=== PATIENT | female | born 1955 | race Caucasian/White ===

== ENCOUNTER 2021-03-29 06:41 | Emergency (ER) | payer MEDICARE, OTHER ==
[~2021-03-29] VITALS: Ht 167 cm; Wt 99.7 kg
--- OUTSIDE RECORDS SUMMARY | 2021-03-29 06:49 | XMS REPORT | Clinical Summary ---
Author Author [facility] Organization [facility] Address Unknown Phone Unavailable Care Team Providers Care Keying Machine Operator Name Role Phone Milton Carreon MD PCP Allergies Comments Active Allergy Reactions Severity Noted Date Doxycycline Nausea And Medium 09/01/2017 Vomiting Droperidol Anxiety Low 11/12/2015 Metronidazole Nausea And Medium 09/04/2017 Vomiting Medications End Date Status Medication Sig Dispensed Refills Start Date Active diazePAM (VALIUM) 5 MG Take 1 tablet 15 tablet 0 1 tabletIndications: Major (5 mg total) 8 depressive disorder with by mouth single episode, in every 6 (six) partial remission (HCC) hours as needed for anxiety. Active chlorthalidone (HYGROTON) Take 1 tablet 90 tablet 3 25 MG tablet (25 mg total) 1 by mouth daily. Active losartan (COZAAR) 25 MG Take 1 tablet 90 tablet 3 tablet (25 mg total) 1 by mouth daily. Active iron polysac-iron heme Take 1 tablet 0 polypep 28 mg Tab by mouth daily. Active therapeutic multivitamin Take 1 tablet 0 (THERAGRAN) tablet by mouth 2 (two) times a day. Active niacin 500 MG tablet Take 500 mg 0 by mouth nightly. Active semaglutide 0.25 mg or Inject 0.25 0 0.5 mg(2 mg/1.5 mL) PnIj mg under the skin weekly. Active mecobalamin, vitamin B12, Chew 1 tablet 0 1,000 mcg Chew daily. Active methylPREDNISolone Follow 21 tablet 0 12/02/ 02 (MEDROL DOSEPACK) 4 mg package 1 tablet directions Active desvenlafaxine succinate TAKE 1 TABLET 90 tablet 3 (PRISTIQ) 100 MG 24 hr BY MOUTH 1 tablet DAILY (TO REPLACE PRISTIQ 50 MG) Active Problems Problem Noted Date Non-smoker 06/26/2020 History of bariatric surgery 05/01/2019 LBBB (left bundle branch block) 04/26/2019 Major depressive disorder with single episode, in par tial remission 07/14/2017 Obesity (BMI 30.0-34.9) 07/18/2015 Varicose veins 10/31/2014 Elevated glucose 08/16/2014 Lump or mass in breast 04/18/2014 Postsurgical nonabsorption 09/29/2013 Overview: Formatting of this note might be differ ent from the original. IMO Update Chronic LBP 05/19/2013 Essential hypertension 10/27/2012 Overview: Formatting of this note might be differ ent from the original. ICD-10 conversion Osteoarthritis 10/27/2012 Overview: Formatting of this note might be differ ent from the original. ICD-10 conversion Resolved Problems Problem Noted Date Resolved Date Hypokalemia 08/16/2014 06/20/2016 Morbid obesity 10/09/2013 05/01/2019 Follow-up examination following surgery 09/29/2013 07/17/2015 Overview: Formatting of this note might be differ ent from the original. ICD-10 conversion Acute upper respiratory infection 04/04/201307/04 Overview: Formatting of this note might be differ ent from the original. ICD-10 conversion Myalgia and myositis 10/27/2012 05/01/2019 Overview: Formatting of this note might be differ ent from the original. ICD-10 conversion Encounters Care Team Description Date Type Specialty Zane Cornell DO Thyroid nodule 01/22/2021 Lab Lab Zane Cornell DO Thyroid nodule (Primary Dx) 01/22/2021 Transcribe Lab Orders from Last 3 Months Immunizations Name Administration Dates Next Due Influenza QIV (IM) 12/28/2019, 12/19/2018, 03/2018, 12/18/2016, 01/08/2016, 12/15/2013 Influenza QIV 12/28/2019 (adjuvanted) IM Influenza, Injectable, 12/19/2018 Quadrivalent, Contains Preservative Influenza, seasonal, 12/28/2019, 01/17/2015, 03/2014, 03/04/2013, injectable, preservatie 04/05/2011 free (IIV3). 15 = Influenza TIV Moderna Sars-cov-2 06/12/2020, 05/15/2020 Pneumococcal Conjugate 12/28/2019 13-Valent Pneumococcal 04/04/2008 Polysaccharide 23-Valent Varicella Zoster 12/04/2017, 08/17/2017 Recombinant, Adjuvanted (Shingrix) Zoster,live 07/17/2015 Family History Medical History Relation Name Comments Hypertension Brother 1 Essential Hypertens ion; Other Brother 2 Denial Of Any Signi ficant Medical History; Hypertension Father Essential Hypertens ion; Prostate cancer Father Prostate Cancer; Breast cancer Mother Breast Cancer; Lung cancer Mother Lung Cancer; Lung cancer Sister Lung Cancer; Relation Name Status Comments Brother 1 Brother 2 Father Mother Sister Social History Date Tobacco Use Types Packs/Day Years Used Never Smoker Smokeless Tobacco: Never Used Comments Alcohol Use Standard Drinks/Week Not Currently 0 (1 standard drink = 0.6 o z pure alcohol) Sex Assigned at Date Recorded Not on file Last Filed Vital Signs Reading Time Taken Comments Vital Sign 96/58 06/26/2020 1:14 PM CDT Blood Pressure 92 12/02/2020 2:19 PM CDT Pulse 36.7 C (98.1 F) 12/02/2020 2:19 PM CDT Temperature 18 12/02/2020 2:19 PM CDT Respiratory Rate 94% 12/02/2020 2:19 PM CDT Oxygen Saturation - - Inhaled Oxygen Concentration 107.5 kg (237 lb) 06/26/2020 1:14 PM CDT Weight 180.3 cm (5' 11") 06/26/2020 1:14 PM CDT Height 33.05 06/26/2020 1:14 PM CDT Body Mass Index Plan of Treatment Health Maintenance Due Date Last Done Comments Hepatitis C Screen 1955 Td/Tdap# 1955 Depression Monitoring 1955 PHQ-9 # Colorectal Screening via 10/27/2012 10/27/2002 Colonoscopy Medicare Annual Wellness 07/14/2018 07/14/2017, 01/08/2016 Advance Care Plan 2019 Conversation Needed # Osteoporosis Screening 2019 Fall Risk Assessment # 04/25/2020 04/25/2019, 07/14/2017, 07/14/2017 COVID-19 Vaccine (3 - 12/13/2020 06/12/2020, Booster for Moderna 05/15/2020 series) Pneumococcal Vaccine: 65+ 12/27/2020 12/28/2019, Years (2 of 2 - PPSV23) 04/04/2008 Influenza Vaccine (#1) 2021 12/28/2019, 12/28/2019, 12/28/2019, Additional history exists Mammogram Screening 03/27/2021 03/27/2020, 03/23/2019, 03/21/2018, Additional history exists Diabetes Mellitus 04/30/2021 04/30/2020, Ophthalmology Exam 04/26/2019, 12/16/2018, Additional history exists Zoster Vaccine# Completed 12/04/2017, 08/17/2017, 07/17/2015 Procedures Comments Procedure Name Priority Date/Time Associated Diag nosis THYROID STIMULATING Routine 01/22/2021 Thyroid no dule HORMONE 2:00 PM CDT TOTAL THYROXINE Routine 01/22/2021 Thyroid nodule 2:00 PM CDT from Last 3 Months Results * Total Thyroxine (01/22/2021 2:00 PM CDT) Total Thyroxine 6.9 5.5 - 11.0 ug/dL [facility] Specimen Blood Performing Organization Address City/State/[facility] Code P brenda Number [address] [address] LABORATORIES [facility] [address] [place] [id number] * Thyroid Stimulating Hormone (01/22/2021 2:00 PM CDT) Thyroid 0.99 0.47 - 4.68 uIU/mL [facility] Hormone Specimen Blood Performing Organization Address City/[facility]/ZIP Code P brenda Number [address] [address] LABORATORIES [facility] [address] [place] [phone] from Last 3 Months Insurance Type Payer Benefit Subscriber ID Effective Phone Address Plan / Dates Group MEDICARE REPLACEMENT PLAN AETNA [id number] 2017-P [address] MEDICARE resent [id number] [place] [phone] Jackelyn Alfaro Personal/F Self 1955 [id number] [address]Home) [place], [place] [address] Jackelyn Alfaro Personal/F Self 1955 [id number] [address] (Home) [place], [place] [address] Advance Directives For more information, please contact: [phone] 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
--- OUTSIDE RECORDS SUMMARY | 2021-03-29 06:49 | XMS REPORT | Clinical Summary ---
Author Author [facility] Organization [facility] Address Unknown Phone Unavailable Care Team Providers Care Manager Clinical Services Name Role Phone Hermelinda Mancini NP PCP Unavailable Source Comments [facility] (Labor and Delivery) documents do not appear in the [facility] Allergies Not on File Medications Please verify current medications with patient. Not on file Active Problems Not on file Social History Date Tobacco Use Types Packs/Day Years Used Never Assessed Sex Assigned at Date Recorded Not on file Last Filed Vital Signs Not on file Plan of Treatment Health Maintenance Due Date Last Done Comments CT Colonography 1955 Colonoscopy 1955 Colorectal Cancer 1955 Screening DNA-based stool test 1955 (Cologuard) DXA Scan 1955 DXA, Refined Population 1955 Mammogram 1955 Sigmoidoscopy 1955 gFOBT or FIT 1955 COVID-19 Vaccine (1) 1966 Pneumococcal Vaccine: 65+ 2019 Years (1 of 1 - PPSV23) Influenza Vaccine (#1) 2020 HPV Vaccine Aged Out No longer eligible based on patient's age to complete this topic Hepatitis A Vaccine Aged Out No longer eligible based on patient's age to complete this topic Hepatitis B Vaccine Aged Out No longer eligible based on patient's age to complete this topic Hib Vaccine Aged Out No longer eligible based on patient's age to complete this topic IPV Vaccine Aged Out No longer eligible based on patient's age to complete this topic Meningococcal Vaccine Aged Out No longer eligib le based on patient's age to (MCV4) complete this topic Rotavirus Vaccine Aged Out No longer eligible based on patient's age to complete this topic Results Not on filefrom Last 3 Months Insurance Type Payer Benefit Subscriber ID Effective Phone Address Plan / Dates Group Medicare MEDICARE ZZMEDICARE [id number] Effective [phone] for [id number] [place] [address] [facility] [id number] Effective [phone] [address] [place] [id number] [place] [address] Advance Directives Patient Claims Specialist Explanation Type Date Recorded Living Will CPR Directives Durable Medical POA Advanced Directives 06/23/2012 2:15 PM Care Teams Start Date End Date Manager Clinical Services Relationship Specialty 06/23/12 Hermelinda Mancini HARVEST SUPERVISOR PCP - General Internal Medicine
--- OUTSIDE RECORDS SUMMARY | 2021-03-29 06:49 | XMS REPORT | Clinical Summary ---
Author Author [facility] Organization [facility] Address Unknown Phone Unavailable Care Team Providers Care Silo Worker Name Role Phone Milton Ventura MD Unavailable Milton Carreon MD PCP Howard Simon MD Unavailable Source Comments Some departments are not documenting in the electronic medical record. If you d o not see the information that you expected, contact Release of Information in [facility] [employer] Information Management department at [phone] for further assistan ce in locating additional records.[facility] Allergies Comments Active Allergy Reactions Severity Noted Date Droperidol ANXIETY Low 11/12/2015 History of gastric bypass Nsaids (Non-Steroidal SEE COMMENTS Low 04/27/19 19 Anti-Inflammatory Drug) Medications End Date Status Medication Sig Dispensed Refills Start Date Active Desvenlafaxine (PRISTIQ) Take 100 mg 0 100 mg Tb24 by mouth daily. Active carvedilol (COREG) 12.5 Take 12.5 mg 0 mg tablet by mouth twice daily with meals. Take with food. Active furosemide (LASIX) 20 mg Take 20 mg by 0 tablet mouth every morning. Active vitamins, B complex tab Take 1 Tab by 0 mouth daily. Active vitamins, multi Take 1 Tab by 0 w/minerals 27-0.4 mg tab mouth daily. Active ferrous sulfate (FEOSOL, Take 325 mg 0 FEROSUL) 325 mg (65 mg by mouth iron) tablet daily. Take on an empty stomach at least 1 hour before or 2 hours after food. Active CANNABIDIOL (CBD) EXTRACT Take by 0 PO mouth twice daily. Active Problems Problem Noted Date History of weight loss 08/10/2018 Encounter for cosmetic surgery 02/11/2016 S/P cosmetic plastic surgery 02/10/2016 History of weight loss surgery 11/12/2015 Adiposity, localized 11/12/2015 Resolved Problems Problem Noted Date Resolved Date Postoperative seroma of subcutaneous tissue after non-derma tologic 05/19/2016 07/01/2016 procedure Surgical History Surgery Date Site/Laterality Comments BREAST SURGERY 2013 Bilateral reduction KIDNEY STONE SURGERY 2000-prese removal multiple nt GASTRIC BYPASS 2013 jayson-en-y HX CHOLECYSTECTOMY 1983 LAP BAND 2010,2012 removed 2012 GASTRIC BYPASS 2014 revision ADENOIDECTOMY 2006 uvula removed d/t s leep apnea KNEE ARTHROSCOPY 1996 Right HX COSMETIC SURGERY BRACHIOPLASTY 02/10/2016 Bilateral EXTENDED BRACHI OPLASTY performed by Milton Ventura MD at [facility] OR/PERIOP LIPECTOMY 08/10/2018 Abdomen/N/A HORTENSIANALDO AVINA PA NNICULECTOMY performed by Milton Ventura MD at [facility] OR/Pe riop Medical History Medical History Date Comments Depression Fibromyalgia DM (diabetes mellitus) (HCC) type 2, diet/weight co ntrolled Hypertension Family History Medical History Relation Name Comments Cancer Father prostate Heart Disease Father Hypertension Father Cancer Maternal blood Grandfather Cancer Maternal Breast Grandmother Cancer Mother Lung and Breast Diabetes Mother Stroke Mother Heart Disease Paternal Grandfather None Reported Paternal Grandmother Cancer Sister lung Relation Name Status Comments Father Maternal Grandfather Maternal Grandmother Mother Paternal Grandfather Paternal Grandmother Sister Social History Date Tobacco Use Types Packs/Day Years Used Never Smoker Smokeless Tobacco: Never Used Comments Alcohol Use Standard Drinks/Week monthly or less Yes 0 (1 standard drink = 0.6 o z pure alcohol) Alcohol Habits Answer Date Recorded How often do you have a drink containing alcohol? No t asked How many drinks containing alcohol do you have on No t asked a typical day when you are drinking? How often do you have six or more drinks on one Not asked occasion? Comment: monthly or less 04/27/2018 Sex Assigned at Date Recorded Not on file Last Filed Vital Signs Reading Time Taken Comments Vital Sign 140/73 02/08/2019 2:24 PM OPTICAL GOODS WORKER Blood Pressure 56 02/08/2019 2:24 PM OPTICAL GOODS WORKER Pulse 36.7 C (98.1 F) 02/08/2019 2:24 PM OPTICAL GOODS WORKER Temperature 16 02/08/2019 2:24 PM OPTICAL GOODS WORKER Respiratory Rate 96% 02/08/2019 2:24 PM OPTICAL GOODS WORKER Oxygen Saturation - - Inhaled Oxygen Concentration 100.9 kg (222 lb 6.4 oz) 02/08/2019 2:24 PM OPTICAL GOODS WORKER Weight 167.6 cm (5' 6") 02/08/2019 2:24 PM OPTICAL GOODS WORKER Height 35.9 02/08/2019 2:24 PM OPTICAL GOODS WORKER Body Mass Index Plan of Treatment Health Maintenance Due Date Last Done Comments MEDICARE ANNUAL WELLNESS 1955 VISIT DTAP/TDAP VACCINES (1 - 1972 Tdap) HEPATITIS C SCREENING 1972 PHYSICAL (COMPREHENSIVE) 1972 EXAM BREAST CANCER SCREENING 1994 COLORECTAL CANCER 2004 SCREENING OSTEOPOROSIS 2019 SCREENING/MONITORING PNEUMONIA (PPSV23) 2019 VACCINE ( - PPSV23) INFLUENZA VACCINE 11/03/2020 SHINGLES RECOMBINANT Completed 12/04/2017, VACCINE 08/17/2017 Results Not on filefrom Last 3 Months Insurance Type Payer Benefit Subscriber ID Effective Phone Address Plan / Dates Group Medicare AETNA MEDICARE AETNA [id number] 2017-P [phone] [address] MEDICARE resent [id number] [place] [address] Guarantor Name Account Relation to Date of Phone Billin g Address Type Patient Jackelyn Alfaro Personal/F Self 1955 [id number] [address] (Home) [place] [phone] (Work) Advance Directives 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 necessary based on Dx 02/11/2016 5:08 PM Full Code 02/10/2016 1:35 PM Provider has discussed Code Status No, discussion no t w/Patient or Family? necessary based on Dx Care Teams Start Date End Date Silo Worker Relationship Specialty 02/10/16 Milton Carreon MD PCP - General Internal [address] Medicine [address] [address] 10/04/15 Milton Ventura MD Plastic [address] [place] [address] 04/27/18 Howard Simon MD Vascular [address] [facility] Surgery Vascular Surgery [place], [place] [id number]
[2021-03-29] MEDS ORDERED: NITROGLYCERIN 0.4 MG SL TABS BTL 25'S SL PRN (07:15)
[2021-03-29] MEDS ORDERED: ASPIRIN 81 MG CHEW (CHILDREN'S ASA) PO ONE (07:15)
[2021-03-29 07:27] LABS: BASOPHILS # (AUTO) 0.1 10^3/uL (0.0-0.1); BASOPHILS % (AUTO) 1 % (0-10); EOSINOPHILS # (AUTO) 0.1 10^3/uL (0.0-0.3); EOSINOPHILS % (AUTO) 2 % (0-10); HEMATOCRIT 44 % (35-52); HEMOGLOBIN 14.5 g/dL (11.5-16.0); LYMPHOCYTES # (AUTO) 2.2 10^3/uL (1.0-4.0); LYMPHOCYTES % (AUTO) 35 % (12-44); MEAN CORPUSCULAR HEMOGLOBIN 32 pg (25-34); MEAN CORPUSCULAR HGB CONC 33 g/dL (32-36); MEAN CORPUSCULAR VOLUME 95 fL (80-99); MEAN PLATELET VOLUME 10.3 fL (9.0-12.2); MONOCYTES # (AUTO) 0.6 10^3/uL (0.0-1.0); MONOCYTES % (AUTO) 10 % (0-12); NEUTROPHILS # (AUTO) 3.2 10^3/uL (1.8-7.8); NEUTROPHILS % (AUTO) 52 % (42-75); PLATELET COUNT 232 10^3/uL (130-400); WHITE BLOOD COUNT 6.1 10^3/uL (4.3-11.0)
[2021-03-29 07:38] LABS: ALBUMIN 3.8 GM/DL (3.2-4.5); CHLORIDE 102 MMOL/L (98-107); POTASSIUM 3.1 MMOL/L (3.6-5.0); SODIUM 140 MMOL/L (135-145)
[2021-03-29 07:39] LABS: AMYLASE 47 U/L (25-125); CALCIUM 9.3 MG/DL (8.5-10.1)
[2021-03-29 07:40] LABS: GLUCOSE 128 MG/DL (70-105)
[2021-03-29 07:41] LABS: TOTAL PROTEIN 6.8 GM/DL (6.4-8.2)
[2021-03-29 07:42] LABS: CARBON DIOXIDE 26 MMOL/L (21-32)
[2021-03-29 07:43] LABS: BILIRUBIN,TOTAL 0.7 MG/DL (0.1-1.0)
[2021-03-29 07:44] LABS: ALKALINE PHOSPHATASE 78 U/L (40-136); CREATININE SERUM 0.79 MG/DL (0.60-1.30); GFR ESTIMATED 73
[2021-03-29 07:45] LABS: BUN/CREATININE RATIO 28
[2021-03-29 07:47] LABS: ALANINE AMINOTRANSFERASE 16 U/L (0-55)
[2021-03-29 07:48] LABS: CREATINE KINASE 113 U/L (29-168); LIPASE 23 U/L (8-78)
[2021-03-29 07:56] LABS: CREATINE KINASE MB 1.1 NG/ML (<6.6)
--- NOTE | 2021-03-29 08:02 | ED Chest Pain ---
General Chief Complaint: Chest Pain Stated Complaint: CP,DIZZY Source: patient History of Present Illness Date Seen by Provider: Mar 29, 2021 Time Seen by Provider: 07:05 Initial Comments PT ARRIVES VIA POV PT HERE VISITING FROM [place], [place]--JUST GOT TO [facility] LAST NIGHT STATES SHE HAS HAD SOME DIZZINESS SINCE LAST NIGHT WOKE UP AT 0100 WITH CHEST PAIN, HAS HAD 3 EPISODES OF PAIN SINCE THEN RATES PAIN 1/10 NOW PAIN IS IN CENT OF CHEST AND LEFT UPPER CHEST, OCCASIONALLY RADIATES UNDER LEFT BREAST + SWEATS NO SHORTNESS OF BREATH NO PALPITATIONS NO SYNCOPE NO NAUSEA/VOMITING NO SWELLING IN LEGS/ FEET OR PAIN IN CALVES NO HISTORY OF SIMILAR NO FEVER OR COUGH OR RECENT ILLNESS PT HAS HAD COVID-19 VACCINES X 2. Allergies and Home Medications Allergies Coded Allergies: droperidol (Verified Allergy, Unknown, 03/29/21) Patient Home Medication List Home Medication List Reviewed: Yes Review of Systems Review of Systems Constitutional: see HPI, chills, diaphoresis EENTM: No Symptoms Reported Respiratory: No Symptoms Reported Cardiovascular: See HPI, Chest Pain; Denies Edema, Denies Lightheadedness, Denies Palpitations, Denies Syncope Gastrointestinal: No Symptoms Reported; Denies Abdominal Pain, Denies Nausea, Denies Vomiting Genitourinary: No Symptoms Reported Musculoskeletal: no symptoms reported Skin: no symptoms reported Psychiatric/Neurological: No Symptoms Reported Endocrine: No Symptoms Reported Hematologic/Lymphatic: No Symptoms Reported Past Dhxjnvk-[id number]-Vnkzko Hx Patient Social History Tobacco Use?: No Substance use?: No Alcohol Use?: Yes Alcohol Frequency: Several times a month Past Medical History Surgery/Hospitalization HX: [facility] BARIATRIC SURGERY 9 YEARS AGO, FOLLOWED BY [facility] IN 2014 FOR [facility] MULTIPLE PLASTIC SURGERIES Surgeries: Yes Abdominal, Gallbladder Respiratory: No Cardiac: Yes (LBBB FROM EKG 10/2019) Hypertension Neurological: No Genitourinary: No Gastrointestinal: Yes (S/P BARIATRIC SURGERY; S/P CHOLECYSTECTOMY) Gall Bladder Disease Musculoskeletal: No Endocrine: Yes (OBESITY) HEENT: No Cancer: No Psychosocial: Yes Depression Integumentary: No Blood Disorders: No Physical Exam Vital Signs Vital Signs - First Documented 03/29/21 07:07 Temp 36.1 Pulse 75 Resp 18 B/P (MAP) 136/88 (104) Pulse Ox 93 Capillary Refill : Height, Weight, BMI Height: '" Weight: lbs. oz. 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 Norm as Tested Skin: Normal Color, Warm/Dry Progress/Results/Core Measures Results/Orders Lab Results Laboratory Tests Test 03/29/21 07:17 03/29/21 10:32 Range/Units White Blood Count 6.1 4.3-11.0 10^3/uL Red Blood Count 4.60 3.80-5.11 10^6/uL Hemoglobin 14.5 11.5-16.0 g/dL Hematocrit 44 35-52 % Mean Corpuscular Volume 95 80-99 fL Mean Corpuscular Hemoglobin 32 25-34 pg Mean Corpuscular Hemoglobin Concent 33 32-36 g/dL Red Cell Distribution Width 13.5 10.0-14.5 % Platelet Count 232 130-400 10^3/uL Mean Platelet Volume 10.3 9.0-12.2 fL Immature Granulocyte % (Auto) 0 % Neutrophils (%) (Auto) 52 42-75 % Lymphocytes (%) (Auto) 35 12-44 % Monocytes (%) (Auto) 10 0-12 % Eosinophils (%) (Auto) 2 0-10 % Basophils (%) (Auto) 1 0-10 % Neutrophils # (Auto) 3.2 1.8-7.8 10^3/uL Lymphocytes # (Auto) 2.2 1.0-4.0 10^3/uL Monocytes # (Auto) 0.6 0.0-1.0 10^3/uL Eosinophils # (Auto) 0.1 0.0-0.3 10^3/uL Basophils # (Auto) 0.1 0.0-0.1 10^3/uL Immature Granulocyte # (Auto) 0.0 0.0-0.1 10^3/uL Erythrocyte Sedimentation Rate 12 0-30 MM/HR Prothrombin Time 13.8 12.2-14.7 SEC INR Comment 1.0 0.8-1.4 Activated Partial Thromboplast Time 29 24-35 SEC D-Dimer 1.09 H 0.00-0.49 UG/ML Sodium Level 140 135-145 MMOL/L Potassium Level 3.1 L 3.6-5.0 MMOL/L Chloride Level 102 98-107 MMOL/L Carbon Dioxide Level 26 21-32 MMOL/L Anion Gap 12 5-14 MMOL/L Blood Urea Nitrogen 22 H 7-18 MG/DL Creatinine 0.79 0.60-1.30 MG/DL Estimat Glomerular Filtration Rate 73 BUN/Creatinine Ratio 28 Glucose Level 128 H 70-105 MG/DL Calcium Level 9.3 8.5-10.1 MG/DL Corrected Calcium 9.5 8.5-10.1 MG/DL Magnesium Level 2.0 1.6-2.4 MG/DL Total Bilirubin 0.7 0.1-1.0 MG/DL Aspartate Amino Transf (AST/SGOT) 21 5-34 U/L Alanine Aminotransferase (ALT/SGPT) 16 0-55 U/L Alkaline Phosphatase 78 40-136 U/L Lactate Dehydrogenase 220 125-220 U/L Total Creatine Kinase 113 29-168 U/L Creatine Kinase MB 1.1 <6.6 NG/ML Myoglobin 58.2 10.0-92.0 NG/ML Troponin I < 0.028 < 0.028 <0.028 NG/ML C-Reactive Protein High Sensitivity 0.15 0.00-0.50 MG/DL B-Type Natriuretic Peptide 17.8 <100.0 PG/ML Total Protein 6.8 6.4-8.2 GM/DL Albumin 3.8 3.2-4.5 GM/DL Amylase Level 47 25-125 U/L Lipase 23 8-78 U/L Procalcitonin 0.02 <0.10 NG/ML Influenza Type A (RT-PCR) Not Detected Not Detecte Influenza Type B (RT-PCR) Not Detected Not Detecte SARS-CoV-2 RNA (RT-PCR) Not Detected Not Detecte My Orders Orders - DESI CASEY DO Cbc With Automated Diff (03/29/21 07:10) Magnesium (03/29/21 07:10) Chest 1 View, Ap/Pa Only (03/29/21 07:10) Ekg Tracing (03/29/21 07:10) Comprehensive Metabolic Panel (03/29/21 07:10) Myoglobin Serum (03/29/21 07:10) Protime With Inr (03/29/21 07:10) Partial Thromboplastin Time (03/29/21 07:10) O2 (03/29/21 07:10) Monitor-Rhythm Ecg Trace Only (03/29/21 07:10) Ed Iv/Invasive Line Start (03/29/21 07:10) Creatine Kinase (03/29/21 07:10) Creatine Kinase Mb (03/29/21 07:10) Lipase (03/29/21 07:10) Amylase (03/29/21 07:10) Bnp Cathy (03/29/21 07:10) Fibrin Degradation Products (03/29/21 07:10) Nitroglycerin 0.4 Mg Btl 25's (Nitrostat (03/29/21 07:15) Aspirin Chewable Tablet (Baby Aspirin Ch (03/29/21 07:15) Erythrocyte Sedimentation Rate (03/29/21 07:10) Covid 19 Inhouse Test (03/29/21 07:10) Influenza A And B By Pcr (03/29/21 07:10) Isolation Central Supply Req (03/29/21 07:10) Hs C Reactive Protein (03/29/21 07:17) LDH (03/29/21 07:17) Procalcitonin (Pct) (03/29/21 07:17) Troponin I [place] (03/29/21 07:17) Ct Angio Chest W (03/29/21 08:34) Iohexol Injection (Omnipaque 350 Mg/Ml 1 (03/29/21 08:45) Received Contrast (Hold Metformin- Contr (03/29/21 08:45) Ns (Ivpb) (Sodium Chloride 0.9% Ivpb Bag (03/29/21 08:45) Ekg Tracing (03/29/21 10:03) Troponin I Cathy (03/29/21 10:03) Medications Given in ED Current Medications Medications Dose Ordered Sig/Blaire Route Start Time Stop Time Status Last Admin Dose Admin Aspirin 324 mg ONCE ONCE PO 03/29/21 07:15 03/29/21 07:16 DC 03/29/21 07:22 324 MG Vital Signs/I&O 03/29/21 03/29/21 07:07 11:20 Temp 36.1 Pulse 75 66 Resp 18 18 B/P (MAP) 136/88 (104) 110/71 Pulse Ox 93 97 Progress Progress Note : Progress Note PLACED IN ISOLATION ROOM PPE WORN AT ALL TIMES COVID-19 TESTING DONE GIVEN ASPIRIN HELD NTG, DUE TO PAIN IS MINIMAL NO CHEST PAIN FOR REMAINDER OF ER STAY OFFERED ADMIT, AND PT ADAMANTLY REFUSES. 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 Initial ECG Impression Date: Mar 29, 2021 Initial ECG Impression Time: 07:10 Initial ECG Rate: 75 Initial ECG Rhythm: Normal Sinus (LBBB) Comment PT BRINGS COPIES OF PRIOR EKG'S--LAST ONE WAS FROM 10/2019, SHOWING LBBB AND IS SAME TODAY'S EKG DONE HERE EKG : EKG Time: 10:16 Rate: 64 Rhythm: Normal Sinus (LBBB) ECG Comparisson: Unchanged Diagnostic Imaging Comments CXR--PER RADIOLOGIST REPORT AT 0835 FINDINGS: The cardiac silhouette and pulmonary vasculature within normal limits. The lungs are clear. No pleural effusion. No pneumothorax. No acute osseous abnormality. Surgical clips within the right upper quadrant of the abdomen. IMPRESSION: No acute cardiopulmonary abnormality. CT CHEST ANGIOGRAM--PER RADIOLOGIST REPORT AT 0925 FINDINGS: Calcified right hilar lymph nodes are present. No pathologically enlarged lymph nodes within the chest. Mild scattered vascular calcifications. No aneurysmal dilatation of thoracic aorta. The heart is borderline enlarged. No significant pericardial effusion. No pleural effusion. Post surgical changes of a gastric bypass. No pneumothorax. Mild atelectasis within the medial right lung base adjacent to osteophytes. The lungs are otherwise clear. The trachea is patent. No significant filling defect within the central or segmental pulmonary arteries. The pulmonary arteries are noted to be mildly tortuous. Mild dilatation of the right pulmonary artery measuring up to 3.0 cm with minimal dilatation of the left pulmonary artery measuring 2.8 cm. Cholecystectomy. Nonobstructing left renal calculus. The visualized upper abdomen is otherwise unremarkable. Scattered osseous degenerative changes without acute osseous abnormality. IMPRESSION: No significant pulmonary embolus. Mild tortuosity of the pulmonary arteries with slight prominence of the pulmonary arteries. This may relate to early pulmonary artery hypertension. Nonobstructing left renal calculus. Evidence of chronic granulomatous disease. Prior gastric bypass. Reviewed: Reviewed by Me Departure Impression Primary Impression: Chest pain Disposition: HOME, SELF-CARE Condition: Stable Departure-Patient Inst. Decision time for Depature: 11:15 Referrals: NO,LOCAL PHYSICIAN (PCP) Primary Care Physician Patient Instructions: Chest Pain (DC) Add. Discharge Instructions: TAKE 81 MG ASPIRIN DAILY CONTINUE YOUR REGULAR MEDICATIONS PRESCRIBED FOLLOW UP WITH YOUR DR ON WEDNESDAY, RETURN TO ER IF SYMPTOMS RETURN All discharge instructions reviewed with patient and/or family. Voiced understanding. DESI CASEY DO Mar 29, 2021 08:02
[2021-03-29 08:11] LABS: PROTHROMBIN TIME PATIENT 13.8 SEC (12.2-14.7)
--- NOTE | 2021-03-29 08:17 | Diagnostic Imaging Report ---
INDICATION: Chest pain COMPARISON: None available. TECHNIQUE: Single radiograph of the chest dated 03/29/2021 FINDINGS: The cardiac silhouette and pulmonary vasculature within normal limits. The lungs are clear. No pleural effusion. No pneumothorax. No acute osseous abnormality. Surgical clips within the right upper quadrant of the abdomen. IMPRESSION: No acute cardiopulmonary abnormality. Dictated by: Dictated on workstation # [id number]
[2021-03-29] MEDS ORDERED: HOLD METFORMIN - RECEIVED CONTRAST 20 ML VIAL IV SCH (08:45)
[2021-03-29] MEDS ORDERED: NS 100 ML (IVPB) BAG IV ONE (08:45)
[2021-03-29] MEDS ORDERED: IOHEXOL 350 MG/ML 100 ML (OMNIPAQUE 350) VIAL IV ONE (08:45)
--- NOTE | 2021-03-29 09:11 | Diagnostic Imaging Report ---
PROCEDURE: CT angiography of the chest with contrast. TECHNIQUE: Multiple contiguous axial images were obtained through the chest after uneventful bolus administration of intravenous contrast. 3D reconstructed CTA MIP acquisitions were also performed. Auto Exposure Controls were utilized during the CT exam to meet ALARA standards for radiation dose reduction. INDICATION: Chest pain, pulmonary embolism COMPARISON: Radiographs of the chest from same date. FINDINGS: Calcified right hilar lymph nodes are present. No pathologically enlarged lymph nodes within the chest. Mild scattered vascular calcifications. No aneurysmal dilatation of thoracic aorta. The heart is borderline enlarged. No significant pericardial effusion. No pleural effusion. Post surgical changes of a gastric bypass. No pneumothorax. Mild atelectasis within the medial right lung base adjacent to osteophytes. The lungs are otherwise clear. The trachea is patent. No significant filling defect within the central or segmental pulmonary arteries. The pulmonary arteries are noted to be mildly tortuous. Mild dilatation of the right pulmonary artery measuring up to 3.0 cm with minimal dilatation of the left pulmonary artery measuring 2.8 cm. Cholecystectomy. Nonobstructing left renal calculus. The visualized upper abdomen is otherwise unremarkable. Scattered osseous degenerative changes without acute osseous abnormality. IMPRESSION: No significant pulmonary embolus. Mild tortuosity of the pulmonary arteries with slight prominence of the pulmonary arteries. This may relate to early pulmonary artery hypertension. Nonobstructing left renal calculus. Evidence of chronic granulomatous disease. Prior gastric bypass. Dictated by: Dictated on workstation # [id number]
[2021-03-29 11:20] VITALS: BP 110/71
== END 2021-03-29 11:22 | disposition home or self-care (01) ==
LOC: ER 06:46
DX: R07.89 Other chest pain (principal); I10 Essential (primary) hypertension; F32.9 Major depressive disorder, single episode, unspecified; E66.9 Obesity, unspecified; Z20.822 Contact with and (suspected) exposure to COVID-19; Z79.899 Other long term (current) drug therapy
CPT/HCPCS: 36415; 71045; 71275; 80053; 82150; 82550; 82553; 83615; 83690; 83735; 83874; 83880; 84145; 84484; 85025; 85379; 85610; 85652; 85730; 86141; 87636; 93041